=== PATIENT | male | born 1970 | race Caucasian/White ===

== ENCOUNTER 2021-04-20 19:02 | Emergency (ER) | payer OTHER ==
[2021-04-20 21:29] LABS: BASOPHIL 0.4 % (0-2); EOSINOPHIL 4.6 % (0-5); HCT 43.2 % (42.0-52.0); HGB 14.3 g/dl (13.2-18.0); MCH 31.8 pg (25.0-31.0); MCHC 33.1 g/dL (32.0-36.0); MONOCYTE 10.7 % (0-12); MPV 9.7 fL (6.0-9.5); NEUTROPHIL 54.2 % (41-80); NRBC 0; PLT 166 K/uL (150-400); RDW 13.8 % (11.5-14.0); WBC 6.9 K/uL (4.0-10.5)
[2021-04-20 21:47] LABS: BUN/CREAT RATIO (CALC) 19.6 RATIO; CREATININE 1.02 mg/dL (0.67-1.17); POTASSIUM 4.5 mmol/L (3.5-5.1)
[2021-04-20 22:22] LABS: INR 1.1 (0.9-1.2); PROTHROMBIN TIME 13.6 SECONDS (11.8-13.4)
[2021-04-21 05:27] LABS: PRO-BNP 243 pg/mL (<125)
[2021-04-21 10:42] LABS: INR 1.19 (0.9-1.2); PROTHROMBIN TIME 14.5 SECONDS (11.8-13.4)
[2021-04-21 15:18] LABS: BASOPHIL 0.7 % (0-2); EOSINOPHIL 5.4 % (0-5); HCT 39.8 % (42.0-52.0); HGB 13.2 g/dl (13.2-18.0); LYMPHOCYTE 41.4 % (15-48); MCH 32.1 pg (25.0-31.0); MCHC 33.2 g/dL (32.0-36.0); MCV 96.8 fL (78.0-100.0); MPV 9.8 fL (6.0-9.5); NEUTROPHIL 40.3 % (41-80); NRBC 0; PLT 154 K/uL (150-400); RBC 4.11 M/uL (4.70-6.00); WBC 5.4 K/uL (4.0-10.5)
[2021-04-21 15:36] LABS: BILIRUBIN - TOTAL 0.4 mg/dL (0.2-1.0); CREATININE 0.94 mg/dL (0.67-1.17); POTASSIUM 4.4 mmol/L (3.5-5.1)
[2021-04-22 20:26] LABS: ALBUMIN 3.1 g/dL (3.4-5.0); BILIRUBIN - TOTAL 0.3 mg/dL (0.2-1.0); BUN/CREAT RATIO (CALC) 17.2 RATIO; CREATININE 0.99 mg/dL (0.67-1.17); GLOBULIN (CALCULATION) 4.4 g/dL; POTASSIUM 4.8 mmol/L (3.5-5.1); TOTAL PROTEIN 7.5 g/dL (6.4-8.2)
== END 2021-04-22 20:21 | disposition other institution (70) ==
LOC: FER 19:02
PROVIDERS: Emergency Medicine; Emergency Medicine Emergency Medical Services; Internal Medicine; Nurse Practitioner Family
DX: I80.12 Phlebitis and thrombophlebitis of left femoral vein (principal); I26.99 Other pulmonary embolism without acute cor pulmonale; F17.290 Nicotine dependence, other tobacco product, uncomplicated; Z20.822 Contact with and (suspected) exposure to COVID-19
CPT/HCPCS: 36415; 71275; 80048; 80053; 83880; 84484; 85025; 85610; 85730; 93971; J1170; J1644; J1885; J2405; J7030; Q9967; U0002